=== PATIENT | female | born 2000 | race Caucasian/White ===

== ENCOUNTER 2023-02-08 10:24 | Emergency (ER) | payer OTHER, SELFPAY ==
--- NOTE | ~2023-02-08 | XR_ITS ---
EXAMINATION: XR ankle RT min 3V INDICATION: Right ankle pain TECHNIQUE: Four views of the right ankle are obtained. COMPARISON: None available FINDINGS: Bone alignment is normal. There is no fracture. There is lateral soft tissue swelling of an kle. IMPRESSION: 1. Ankle soft tissue swelling without acute osseous abnormality. Reviewed, dictated and finalized at location A.
[2023-02-08 10:30] VITALS: BP 142/81; PULSE 118; RESP 16; TEMP 36.7; O2SAT 99
--- NOTE | 2023-02-08 10:35 | ED.LOWEXIN ---
HPI - Extremity Injury (Lower) General Chief Complaint: Extremity Injury, Lower Stated Complaint: Fall Injury/Right Ankle History of Present Illness HPI Narrative: patient presetns with right ankle pain. patient states she rolled her ankle walking home from [place] last night. Hurts to walk on ankle. no deformity noted . superficial abrasions to left knee. Related Data Home Medications Medication Instructions Recorded Confirmed levonorgestrel 20.4 mcg/24 hrs (8 1 device intrauterine ONCE 02/08/23 02/08/23 yrs) 52 mg intrauterine device (Liletta) Allergies Allergy/AdvReac Type Severity Reaction Status Date / Time azithromycin [From Zithromax] Allergy Intermediate Wheezing Verified 02/08/23 10:47 erythromycin base Allergy Intermediate Hives Verified 02/08/23 10:46 Review of Systems Review of Systems: CONSTITUTIONAL: Denies fever, chills, or sweats. EYES: Denies visual changes, redness, or discharge. ENT: Denies rhinorrhea, congestion, sore throat, or otalgia. CARDIOVASCULAR: Denies chest pain, palpitations, or edema. RESPIRATORY: Denies cough or dyspnea. GASTROINTESTINAL: Denies abdominal pain, nausea, vomiting, or diarrhea. GENITOURINARY: Denies dysuria or hematuria. SKIN: Denies rash or itching. MUSCULOSKELETAL: Denies back pain, joint pain, or myalgia. NEUROLOGIC: Denies headache, numbness, or weakness. PSYCHIATRIC: Denies anxiety or depression. PMFSH Comments At time of signature, agree with nursing past medical, surgical, social and family history. There is no relevant family history pertinent to the presenting complaint Exam Narrative: GENERAL: Well-appearing, well-nourished, and in no acute distress. HEAD: Normocephalic, atraumatic. EYES: PERRLA and EOMI. ENT: Nares clear, no rhinorrhea or epistaxis. Mucous membranes moist. NECK: Supple. CHEST: Clear to auscultation. No respiratory distress. HEART: Regular rate and rhythm. No murmur heard. Normal peripheral pulses. ABDOMEN: Soft, nontender, nondistended, normal active bowel sounds. EXTREMITIES: Normal range of motion. No edema. SKIN INTACT. NORMAL DP PULSE, NORMAL CAP REFILL. to right ankle pain to lateral side of ankle. NORMAL SENSATION.NO DEFORMITY. NORMAL ROM, HAS FULL EXTENSION AND FLEXION. COMPARTMENTS SOFT. NEGATIVE ANTERIOR, POSTERIOR DRAWER SIGNS ON TEST. NO CREPITUS. DP PULSE, NORMAL CAPILLARY REFILL MCMURRAYS, PAIN TO RIGHT MEDIAL AND DISTAL KNEE WITH KNEE FLEXION, INTERNAL AND EXTERNAL FOOT ROTATION.NO ERYTHEMA OR INCREASED WARMTH TO CALF. . left knee superficial abrasions to knee SKIN: Warm, dry, no rash. NEURO: No focal deficits. Alert and oriented x3. Briana Coma Scale Eye Opening: Spontaneous 4 Briana Coma Scale Motor: Obeys Commands 6 [place] Coma Scale Verbal: Oriented 5 Briana Coma Scale Total 15 Course Course Level of Care: Express Care Visit Discharge Plan Discharge Clinical Impression: Ankle sprain and strain Patient Disposition: Home, Self-Care Condition: Stable Instructions: Ankle Strain (ED) Additional Instructions: Ice to the area 20-30 minutes 4-6 times a day Elevate above heart Elastic wrap as directed for comfort for the next 5-7 days Tylenol for lesser pain Ibuprofen regularly for the next 2-3 days for the inflammation Follow-up with PCP if further problems or concerns -If you have any worsening of symptoms or any other concerns please go to the ED immediately. elling and redness to the edge of the eyelid. believes it is a sty. Prescriptions: No Action Liletta 20.4 mcg/24 hrs (8 yrs) 52 mg Intrauterine Device 1 device INTRAUTERINE ONCE Rx Instructions: as a single dose Follow-up/Referrals: PHYSICIAN,ENROLLED AGENT [Primary Care Provider] -
== END 2023-02-08 11:05 | disposition home or self-care (01) ==
PROVIDERS: Emergency Provider Nurse Practitioner Family
DX: S93.401A Sprain of unspecified ligament of right ankle, initial encounter (principal); S96.911A Strain of unspecified muscle and tendon at ankle and foot level, right foot, initial encounter; X50.9XXA Other and unspecified overexertion or strenuous movements or postures, initial encounter; G47.30 Sleep apnea, unspecified
CPT/HCPCS: 73610; 99213; G0463

== ENCOUNTER 2024-09-14 15:08 | Outpatient (CLI) | payer OTHER, SELFPAY ==
--- NOTE | ~2024-09-14 | US_ITS ---
EXAM: PELVIC ULTRASOUND HISTORY: D21.9 - Benign neoplasm of connective and other soft tiss... COMPARISON: None FINDINGS: UTERUS: 7.1 x 3.2 x 4.2 cm. The endometrial complex measures 2.34mm. Intrauterine device is present, in good position. Free fluid is detected within the cervix. RIGHT OVARY: The right ovary is unremarkable in echogenicity and size measuring 3.2 x 2.8 x 2.5 cm. Dopplerable flow is identified. LEFT OVARY: The left ovary is unremarkable in echogenicity and size measuring 3.3 x 1.7 x 3.0 cm Dopplerable flow is identified. Free fluid is identified within the posterior cul-de-sac. IMPRESSION: No fibroids are identified. Multiple simple cysts detected bilaterally, for which no further follow-up is needed (based on size c riteria). Free fluid within the posterior cul-de-sac. IUD in good position. Reviewed, dictated and finalized at location A. IMPRESSION: No fibroids are identified. Multiple simple cysts detected bilaterally, for which no further follow-up is n eeded (based on size criteria). Free fluid within the posterior cul-de-sac. IUD in good position.
--- OUTSIDE RECORDS SUMMARY | 2024-09-14 16:36 | XMS_ITS | Referral Summary ---
Author Organization [facility] Address [address] [place] [address] Care Team Providers Care Astronautical Engineer Name Role Phone FredrickMerna DIANE Primary Care Provider [phone] Encounters Date Type Department Care Team Description 08/10/2024 Orders Only [facility] Hospitalists [address] [place] [id number] Gregoria Noyola MD Infected cyst of skin (Primary Dx) 08/03/2024 8:00 AM DISTRICT SUPERVISOR Office Visit [facility] at [address] [place] [address] Gregoria Noyola MD Infected cyst of skin (Primary Dx); Chronic migraine without aura without status migrainosus, not intractable from Last 3 Months Allergies Active Allergy Reactions Criticality Noted Date Comments Apple Swelling Medium 02/24/2018 Azithromycin Diarrhea,Hives,Rash, Ur ticaria,Nausea & Vomiting,Wheezing Medium 04/30/2021 Stomach pain Latex Hives Medium 04/13/2020 [place] Hives Medium 02/05/2024 Mold Other Eye irritation,Itching Low 04/12/2013 Dogs and cats Peanut Anaphylaxis High 04/13/2020 Pineapple Anaphylaxis High 02/05/2024 Phentermine-Topiramate Fatigue Low 03/16/2024 Shellfish Derived Anaphylaxis High 02/05/2024 Tetanus Vaccines And Toxoid Other (See comments),Shortness of breath High 02/05/2024 Tree Nut Anaphylaxis High 04/13/2020 Medications diphenhydrAMINE (diphenhydrAMIN E) 25 mg capsule Take 1 tablet/capsule (25 mg total) by mouth every 6 (six) hours as needed for itching 20 capsule 03/12/20 20 Active SUMAtriptan (IMITREX) 100 mg tabletIndicatio ns:Migraine Take 1 tablet (100 mg total) by mouth once as needed for migraine (headache) May repeat one time after 2 hours if needed. 9 tablet 1 02/05/20 24 025 Active spironolactone (ALDACTONE) 50 mg tabletIndicatio ns:Acne vulgaris Take 1 tablet (50 mg total) by mouth daily 90 tablet 1 02/09/20 24 025 Active EPINEPHrine (EpiPen) 0.3 mg/0.3 mL auto-injection syringeIndicati ons:Anaphylaxis Inject 0.3 mL (0.3 mg total) into the muscle as instructed as needed for anaphylaxis 2 each 3 02/09/20 24 Active famotidine (PEPCID) 20 mg tabletIndicatio ns:Gastroesopha geal reflux disease without esophagitis Take 1 tablet (20 mg total) by mouth 2 (two) times a day for 10 days 20 tablet 04/27/20 24 Active levonorgestreL (MIRENA) IUD 1 each by intrauterine route once Active tirzepatide, weight loss, (Zepbound) 10 mg/0.5 mL pen injector Inject 0.5 mL (10 mg total) under the skin every 7 days 2 mL 08/26/19 25 Active tirzepatide, weight loss, (Zepbound) 7.5 mg/0.5 mL pen injector Inject 0.5 mL (7.5 mg total) under the skin every 7 days 2 mL 07/21/19 25 025 Discontinu ed(Alterna te therapy) cephalexin (KEFLEX) 500 mg capsuleIndicati ons:Skin/Soft Tissue Infection Take 1 capsule (500 mg total) by mouth 4 (four) times a day for 5 days 20 capsule 08/11/19 25 025 Active Problems Problem Noted Date Diagnosed Date Infected cyst of skin 08/03/2024 Assessment & Plan (08/10/2024 6:26 AM DISTRICT SUPERVISOR): 2 cm nodule characteristic of cyst on right upper abdomen, inflamed, not actively bleeding or draining. History of breast fibroadenoma, however this does not seem to be related as cyst is not on the breast. No systemic sick symptoms. - cephalexin for active skin infection - advised patient to use warm compresses, avoid squeezing - consider excision if persistent lesion after acute inflammation resolved Morbid obesity with BMI of 40.0-44.9, adult 01/08 Assessment & Plan (02/05/2024 4:23 PM CDT): Struggling to lose weight Has seen sales training manager; working on calorie deficit Exercising daily; making healthy dietary choices Obstructive sleep apnea syndrome 02/05/2024 Assessment & Plan (02/05/2024 4:22 PM CDT): Compliant with CPAP Chronic migraine without aur a without status migrainosus, not intractable 02/03/2022 Assessment & Plan (08/10/2024 6:30 AM DISTRICT SUPERVISOR): Chronic problem, weekly symptoms, slightly improved with Advil and cool masks. Not addressed fully due to acuity of visit. - trial of Excedrin migraine, patient instructed to take it at first sign of headache - follow-up for dedicated visit if symptoms persist Vitamin D deficiency 05/21/2021 Acne vulgaris 05/20/2021 Assessment & Plan (02/05/2024 4:24 PM CDT): Chronic, stable Continue Spironolactone 50 mg daily Abnormal findings on diagnostic imaging of wally dasilva 02/24/2018 Immunizations Immunization Administration Dates Next Due DTP / HiB 01/28/2000, 9,1998,10/10 DTaP 11/20/2003 DTaP / HiB 01/28/2000 HPV, Unspecified 09/23/2011, 2,06/04/2011,06/04,02/17/2011,02/17/2011 Hep A, Pediatric 09/23/2011,02/17/2011 Hep B, Adolescent or Pediatric 03/13/1999,1998,1998 IPV 11/20/2003, 0,1998,10/10 Influenza, Quadrivalent, Spl it, Intramuscular 03/09/2021,03/08/2020 Influenza, Quadrivalent, Spl it, Preservative Free, Intramuscular 04/13/2019 Influenza, Unspecified 02/18/2024(Deferr ed: Patient Refused),02/06/2023(Deferred: Patient Refused),03/23/2020 MMR 11/20/2003,10/22/1999 Meningococcal ACWY, Unspecified 01/17/2016,11/16 Pneumococcal Conjugate 7-Valent 10/27/2000,01/27 Pneumococcal Conjugate, Unspecified 10/27/2000,0 01/28/2000 Polio, Unspecified 01/17/2016,11/16/2009 Rotavirus, Unspecified 1998,1998,1998,10/10 Tdap 11/16/2009 Varicella 11/16/2009,07/24/1999 Social History Tobacco Use Types Packs/Day Years Used Date Smoking Tobacco: Never Cigarettes Smokeless Tobacco: Never Tobacco Cessation:Counseling Given: Not Answered Alcohol Use Standard Drinks/Week Comments Yes 0 (1 standard drink = 0.6 oz pur e alcohol) [facility] Good Travel Softwareities Answer Date Recorded In the past 12 months has e [employer], gas, oil, or water [employer] threatened to shut off services in your home? No 02/05/2024 Humiliation, Afraid, Rape, and Kick questionnair e Answer Date Recorded Within the last year, have y ou been afraid of your partner or ex-partner? No 02/05/2024 Within the last year, have y ou been humiliated or emotionally abused in other ways by your partner or ex-partner? No Within the last year, have y ou been kicked, hit, slapped, or otherwise physically hurt by your partner or ex-partner? No 02/05/2024 Within the last year, have y ou been raped or forced to have any kind of sexual activity by your partner or ex-partner? No 02/05/2024 Social Connection and Isolat ion Panel [NHANES] Answer Date Recorded In a typical week, how many times do you talk on the phone with family, friends, or neighbors? More than three times a week 02/05/2024 How often do you get togethe r with friends or relatives? More than three times a week 02/05/2024 How often do you attend chur ch or yarsani services? 1 to 4 times per year 02/05/2024 Do you belong to any clubs o r organizations such as judaism groups, unions, fraternal or athletic groups, or school groups? No 02/05/2024 How often do you attend meet ings of the clubs or organizations you belong to? Never 02/05/2024 Are you , , di vorced, , never , or living with a partner? 02/05/2024 AUDIT-C Answer Date Recorded Q1: How often do you have a drink containing alc ohol? 2-4 times a month 08/03/2024 Q2: How many drinks containi ng alcohol do you have on a typical day when you are drinking? 1 or 2 08/03/2024 Q3: How often do you have si x or more drinks on one occasion? Never 08/03/2024 Overall Financial Resource Strain (CARDIA) Answe r Date Recorded How hard is it for you to pa y for the very basics like food, housing, medical care, and heating? Not hard at all 02/05/2024 PHQ-2 Answer Date Recorded PHQ-2 Total Score (If total score is 3 or more points, staff should administer the PHQ-9) 0 08/03/2024 [facility] - Occupational Stress Questionnaire Answer Date Recorded Do you feel stress - tense, restless, nervous, or anxious, or unable to sleep at night because your mind is troubled all the time - these days? Only a little 02/05/2024 Exercise Vital Sign Answer Date Recorde d On average, how many days pe r week do you engage in moderate to strenuous exercise (like a brisk walk)? 7 days 02/05/2024 On average, how many minutes do you engage in exercise at this level? 50 min 02/05/2024 Hunger Vital Sign Answer Date Recorded Within the past 12 months, y ou worried that your food would run out before you got the money to buy more. Never true 02/05/20 24 Within the past 12 months, t he food you bought just didn't last and you didn't have money to get more. Never true 02/05/2024 PRAPARE - Transportation Answer Date Re corded In the past 12 months, has l ack of transportation kept you from medical appointments or from getting medications? No 01/08 In the past 12 months, has l ack of transportation kept you from meetings, work, or from getting things needed for daily living? No 02/05/2024 PHQ-9 Answer Date Recorded PHQ-9 Total Score 0 02/05/2024 Housing Stability Vital Sign Answer Landen e Recorded In the last 12 months, was t here a time when you were not able to pay the mortgage or rent on time? No 02/05/2024 In the past 12 months, how m any times have you moved where you were living? 0 02/05/2024 At any time in the past 12 m [facility], were you homeless or living in a chcf (including now)? No 02/05/2024 Comments No Sex and Gender Information Value Date Recorded Sex Assigned at Not on file Legal Sex Female 7:32 PM DISTRICT SUPERVISOR Gender Identity Not on file Sexual Orientation Not on file Last Filed Vital Signs Vital Sign Reading Time Taken Comments Blood Pressure 91/68 08/03/2024 8:06 AM DISTRICT SUPERVISOR Pulse 90 08/03/2024 8:06 AM DISTRICT SUPERVISOR Temperature 36.6 C (97.9 F) 06/10/2024 2:19 PM DISTRICT SUPERVISOR Respiratory Rate 16 08/03/2024 8:06 AM DISTRICT SUPERVISOR Oxygen Saturation 98% 08/03/2024 8:06 AM DISTRICT SUPERVISOR Inhaled Oxygen Concentration - - Weight 88 kg (194 lb) 08/03/2024 8:06 AM DISTRICT SUPERVISOR Height 157.5 cm (5' 2.01 ) 08/03/2024 8:06 AM CS T Body Mass Index 35.47 08/03/2024 8:06 AM DISTRICT SUPERVISOR Plan of Treatment Not on file Insurance [facility] ACCESS CHOICE [facility] CHO[facility] H[facility]/PPO Address: [address] [address] [place] [address] Care Teams Astronautical Engineer Relationship Specialty Start Date End Date Merna Alcala NP [address] [place] [address] PCP - General Family Medicine 02/05/24
--- OUTSIDE RECORDS SUMMARY | 2024-09-14 16:36 | XMS_ITS | Clinical Summary ---
Author Organization [facility] Address [address] [place] [address] Care Team Providers Care International Organizer Name Role Phone Merna Alcala DIANE Primary Care Provider [phone] Allergies Active Allergy Reactions Criticality Noted Date Comments Apple Swelling Medium 02/24/2018 Azithromycin Diarrhea,Hives,Rash, Ur ticaria,Nausea & Vomiting,Wheezing Medium 04/30/2021 Stomach pain Latex Hives Medium 04/13/2020 [place]ush Hives Medium 02/05/2024 Mold Other Eye irritation,Itching [...] 08/03/2024 Assessment & Plan (08/10/2024 6:26 AM WINDOWS SYSTEMS ADMIN): 2 cm nodule characteristic of cyst on [...] CDT): Struggling to lose weight Has seen passenger coach driver; working on calorie deficit Exercising daily; making healthy dietary choices Obstructive sleep apnea syndrome 02/05/2024 Assessment & Plan (02/05/2024 4:22 PM CDT): Compliant with CPAP Chronic migraine without aur a without status migrainosus, not intractable 02/03/2022 Assessment & Plan (08/10/2024 6:30 AM WINDOWS SYSTEMS ADMIN): Chronic problem, weekly symptoms, slightly improved with [...] daily Abnormal findings on diagnostic imaging of breas t 02/24/2018 Encounters Date Type Department Care Team Description 08/10/2024 Orders Only [facility] Hospitalists [address] [place] [address] Gregoria Noyola MD Infected cyst of skin (Primary Dx) 08/03/2024 8:00 AM WINDOWS SYSTEMS ADMIN Office Visit [facility] Res[facility] at [place] [address] [facility] [address] [place] [address] Gregoria Noyola MD Infected cyst of skin (Primary Dx); Chronic migraine without aura without status migrainosus, not intractable from Last 3 Months Immunizations Immunization Administration Dates Next Due DTP [...] Rotavirus, Unspecified 1998,1998,1998,10/10 Tdap 11/16/2009 Varicella 11/16/2009,07/24/1999 Surgical History Surgery Date Site/Laterality Comments TONSILLECTOMY AND ADENOIDECTOMY Medical History Medical History Date Comments Headache Weight gain Snoring Family History Medical History Relation Name Comments Cancer Father Yevgeniy Hypertension Father Yevgeniy Lymphoma Father Yevgeniy Prostate cancer Father Yevgeniy Diabetes Maternal Grandfather Michael Breast cancer Maternal Grandmother María COPD Maternal Grandmother María Cancer Maternal Grandmother María Diabetes Maternal Grandmother María Asthma Mother Jeison Diabetes Mother Jeison Hypertension Mother Jeison Arthritis Paternal Grandmother María Cancer Paternal Grandmother María Diabetes Paternal Grandmother María Relation Name Status Comments Father Yevgeniy Maternal Grandfather Michael Maternal Grandmother María Mother Jeison Paternal Grandmother María Social History Tobacco Use Types Packs/Day Years Used Date Smoking Tobacco: Never Cigarettes Smokeless Tobacco: Never Tobacco Cessation:Counseling Given: Not Answered Alcohol Use Standard Drinks/Week Comments Yes 0 (1 standard drink = 0.6 oz pur e alcohol) [facility] Utilities Answer Date Recorded In the past 12 months has th e electric, gas, oil, or water [employer] threatened to shut off services in your [...] week 02/05/2024 How often do you attend [facility] or sabianism services? 1 to 4 times per year 02/05/2024 Do you belong to any clubs o r organizations such as sikhism groups, unions, fraternal or athletic groups, or [...] staff should administer the PHQ-9) 0 08/03/2024 [facility] Occupat ional Health - Occupational Stress Questionnaire Answer Date [...] any time in the past 12 m [facility], were you homeless or living in a penitentiary (including now)? No 02/05/2024 Comments No Sex and Gender Information Value Date Recorded Sex Assigned at Not on file Legal Sex Female 7:32 PM WINDOWS SYSTEMS ADMIN Gender Identity Not on file Sexual Orientation Not on file Obstetrics History Last Filed Vital Signs Vital Sign Reading Time Taken Comments Blood Pressure 91/68 08/03/2024 8:06 AM WINDOWS SYSTEMS ADMIN Pulse 90 08/03/2024 8:06 AM WINDOWS SYSTEMS ADMIN Temperature 36.6 C (97.9 F) 06/10/2024 2:19 PM WINDOWS SYSTEMS ADMIN Respiratory Rate 16 08/03/2024 8:06 AM WINDOWS SYSTEMS ADMIN Oxygen Saturation 98% 08/03/2024 8:06 AM WINDOWS SYSTEMS ADMIN Inhaled Oxygen Concentration - - Weight 88 kg (194 lb) 08/03/2024 8:06 AM WINDOWS SYSTEMS ADMIN Height 157.5 cm (5' 2.01 ) 08/03/2024 8:06 AM CS T Body Mass Index 35.47 08/03/2024 8:06 AM WINDOWS SYSTEMS ADMIN Plan of Treatment Health Maintenance Due Date Last Done Comments Cervical Cancer Screening 1998 Hepatitis C Screening 1998 Regular Well Visit/Exam 18-64 2016 Influenza Vaccine (Season Ended) 2025 04/08/2023, 03/09/2021, 03/23/2020, Additional history exists Depression Screening 08/03/2025 08/03/2024, 02/05/20 24 Hepatitis B Screening Completed 03/13/1999 , 1998, 1998 Pneumococcal vaccine <65 Completed 001, 10/27/2000, 01/28/2000, Additional history exists DTaP/Tdap/Td Vaccine Discontinued 11/16/2009, 11/20/2003, 01/28/2000, Additional history exists Varicella Vaccines Completed 11/16/2009, 07/24/1999 HPV Vaccines Completed 09/23/2011, 09/06, 06/04/2011, Additional history exists Covid-19 Vaccine Discontinued 02/25/2021, 02/01/2021 Insurance [facility] ACCESS CHOICE [facility] CHO[facility] PLUS Care Teams International Organizer Relationship Specialty Start Date End Date [place] [address] PCP - General Family Medicine 02/05/24
== END 2024-09-14 15:09 | disposition home or self-care (01) ==
PROVIDERS: PCP Nurse Practitioner; Visit Provider Obstetrics & Gynecology
DX: D21.9 Benign neoplasm of connective and other soft tissue, unspecified (principal); Z97.5 Presence of (intrauterine) contraceptive device; N83.201 Unspecified ovarian cyst, right side; N83.202 Unspecified ovarian cyst, left side
CPT/HCPCS: 76830; 76856

== ENCOUNTER 2024-11-28 00:40 | Day surgery (SDC) | payer OTHER, SELFPAY ==
[2024-11-22 15:04] VITALS: BMI 32.2
--- NOTE | 2024-11-22 15:20 | PC.NURSE ---
Report to the Outpatient Waiting Room, entrance under the green pavilion located off [facility], at time __0830 on date _11/28/24 . Planned Procedure Time: _1030 .? Time changes happen often and if your time is changed the preop area will call you the afternoon before. - You and your visitor will be asked to self-screen and do not enter if you have any COVID symptoms. Please call surgeon if you need to reschedule. - A mask is optional within the hospital at this time. Patients may have clear liquids (water, carbonated beverages, clear teas, apple juice) until 3 hours prior to surgery with a maximum of 20 ounces. - No food from midnight until time of surgery and no smoking, or chewing tobacco (or any form of nicotine). No chewing gum, candy or mints. Take only the following medications with a SIP of water on the morning of surgery: ___NONE DO NOT STOP ANY OF YOUR OTHER PRESCRIPTION MEDICATIONS PRIOR TO SURGERY EXCEPT THE FOLLOWING Hold all vitamins and supplements for 3 days per anesthesiologist. Medications to discontinue per physician NONE Date to take last dose____NONE Please no make-up, nail greenlandic, hairspray, perfume, deodorant, or body powder the day of surgery.? No jewelry (including any body piercings) or valuables the day of surgery, leave them at home.? Please take a shower or bath the night before, or the morning of, surgery with an antibacterial soap.? Wear comfortable, loose fitting clothing.? Children are encouraged to wear pajamas. - Jewelry must be removed prior to entering the operating room.? Rings and piercings that are not removed may be cut off. - The hospital will not accept responsibility for valuables.? - Please leave all valuables, including medications, at home the day of surgery. If you are going home after surgery, a licensed belly dump driver must drive you home.? - NO public transportation without another adult if you receive anesthesia. - We recommend that an adult stay with you for 24 hours following discharge. - We also recommend that you do not drive, make important decision, drink alcoholic beverages, or take any drugs that were not prescribed by your health care provider for at least 24 hours after your discharge time. Follow any additional instructions given to you from your surgeon. Telephone instructions given to __MARJAN and asked if any additional questions and then verbalized understanding. Patient advised to call surgeon office or pre surgery nurse liaison [phone] if any additional questions.
--- NOTE | 2024-11-28 07:07 | WPDHPUPDATE1 ---
History and Physical Update Update Date/Time: 11/28/24 07:07 History and Physical has been reviewed, including an updated exam of the patient. There are NO changes in the patient's condition. Risks, benefits, and alternatives have been discussed and questions answered. Patient agrees to proceed with IUD removal (hysteroscopy not needed as strings are visualized) with LEEP, top hat, and ECC.
[2024-11-28 07:50] VITALS: BP 107/67; PULSE 74; RESP 18; TEMP 36.2; O2SAT 100; BMI 32.9
[2024-11-28] MEDS: ACETAMINOPHEN 500 MG TABLET 1000 MG PO (08:16)
[2024-11-28] MEDS: LACTATED RINGERS 1,000 ML 30 ML IV CONT (08:25)
[2024-11-28 08:42] LABS: BEDSIDEPREGUCG Negative (Negative)
--- NOTE | 2024-11-28 08:46 | WPDANESEPPF ---
Anes - Initial Pre Proc Eval Procedure: Operation Date: 11/28/24 09:30 Proposed Procedures p Hysteroscopy with Intrauterine Device Removal - Parris Willett MD s Loop Electrical Excision Procedure - Parris Willett MD Date/Time: 11/28/24 08:46 Surgeon: Parris Willett MD Pre Op Diagnosis: Cervical Dysplasia Patient Data Age: 24 Gender: F Height: 1.57 m Weight: 81.7 kg Last Vital Signs Temp 36.2 C L 11/28/24 07:50 Pulse 74 11/28/24 07:50 Resp 18 11/28/24 07:50 BP 107/67 11/28/24 07:50 Pulse Ox 100 11/28/24 07:50 O2 Del Method Room Air 11/28/24 07:50 Allergies Allergy/AdvReac Type Severity Reaction Status Date / Time azithromycin (From Zithromax) Allergy Intermediate Wheezing Verified 11/22/24 15:19 erythromycin base Allergy Intermediate Hives Verified 11/22/24 15:19 Home Medications ?Medication ?Instructions ?Recorded ?Confirmed ?Type levonorgestrel 20.4 mcg/24 hr (up 1 device intrauterine ONCE 02/08/23 11/22/24 History to 8 yrs) 52 mg intrauterine device (Liletta) spironolactone 50 mg tablet 50 mg PO DAILY 08/31/24 11/28/24 History clobetasol 0.05 % topical ointment 1 applic topical BID 2 weeks #60 09/01/24 11/22/24 Rx grams phentermine 3.75 mg-topiramate ER 1 cap PO Q24H 11/22/24 11/28/24 History 23 mg capsule,ext.release 24hr mphas (Qsymia) Laboratory Tests 11/28/24 08:39 POC Urine HCG, Qual Negative (Negative) Patient hx anesthesia problems: post op nausea/vomiting Family hx anesthesia problems: none Results Review: All pre-operative results and documents have been reviewed as part of the pre-operative evaluation. [facility] Past Medical History Medical History Allergies Surgical History Surgical History Presence of Liletta IUD november 2020 History of colposcopy PHIL 2 Hx of tonsillectomy Sept 2014 S/P excision of fibroadenoma of breast Jun 2016 Family History Family History Father Malignant neoplasm of prostate Grandparent Breast cancer maternal grandmother 3x Melanoma pat grandmother Depression mat grandmother and grandfather Mother Depression Social History Social History Smoking status: Never smoker Alcohol intake: current Substance use: never Substance use type: does not use Do You Feel Safe in your Home?: Yes Lack of Transportation: No Lack of Food: Never True Current Housing: I Have Housing Concerned About Future Housing: Decline to Answer Difficulty Paying Gas/Electric Bills: Decline to Answer Difficulty Paying for Meds: Decline to Answer Currently Unemployed: Decline to Answer Education: Associate Degree Difficulty w/ Childcare or Family Care: Decline to Answer Living arrangements: with family Additional living arrangements comments: and stepdaughter Occupation/Education: 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 Gender identity (if verbalized by the patient): Female Sexual Orientation (if Verbalized by the Patient): Straight or Heterosexual Spiritual care concerns: No Anes - Eval Final PreProcedure Day of Procedure 11/28/24 08:46 Patient weight: obese Heart: regular rate and rhythm Lungs: clear to auscultation Airway: Mallampati scale class II Neurological: alert and oriented Last oral intake: >/= 8 hours ASA classification: II Emergent: no Anesthetic plan: proceed Anesthesia type and monitoring: general GIVS and standard monitoring Results Review: All pre-operative results and documents have been reviewed as part of the pre-operative evaluation. Informed Consent: The patient's anesthetic plan and its attendant risks and benefits were discussed with the patient/family/POA. Questions were solicited and answers provided to the satisfaction of the patient/family/POA.
[2024-11-28] MEDS: BUPIVACAINE/EPINEPHRINE 0.5% 50 ML VIAL 20 ML INFILTRATE (09:18)
--- NOTE | 2024-11-28 09:20 | S_PTH ---
PATIENT: Bernadette Rodriguez LOC: [facility] U#:[id number] AGE/SX: 24/F ROOM: RE11/28/[address]: Parris Willett MD : 2000 BED: DIS: 11/28/2024 SPEC #: [id number] RECD: 11/28/24 10:43 STATUS: INGRID REVero #: [id number] ALFREDO: 11/28/24 09:[address]: Parris Willett DEPT: [facility] Surgical RECD BY: Naheed Jaeger ENTERED: 11/28/24 10:43 SP TYPE: Surgical OTHR DR: Merna Alcala Tissues: A - Leep/Cone B - Leep/Cone C - Endocervical Curettings Procedures: Hematoxylin and Eosin Stain Gross and Microscopic Level 4 Gross and Microscopic Level 5
[2024-11-28 09:23] LABS: BEDSIDEPREGUCG Negative (Negative)
[2024-11-28] MEDS: FERRIC SUBSULFATE 8 ML SOLUTION WITH APPLICATOR TOPICAL (09:25)
[2024-11-28 09:35] VITALS: BP 95/55; PULSE 82; RESP 14; O2SAT 95
[2024-11-28] MEDS: ONDANSETRON INJ 4 MG/2 ML VIAL IV PUSH (09:41)
--- NOTE | 2024-11-28 09:41 | P.OP_ITS ---
Procedure Note - Detailed Date of Procedure 11/28/24 Pre-op Diagnosis Cervical Dysplasia Post-op Diagnosis Same Procedure Performed IUD removal, LEEP, top hat, ECC Surgeon Parris Willett MD Anesthesia MAC and Local (8cc of 0.5% marcaine w/ epi) Indications PHIL on colpo biopsy at 6 and 9o'clock, PHIL 1 at 12o'clock. Findings IUD removed without issues/intact and discarded. Only area of Lugol's uptake was from 9-12o'clock, all other areas of the cervix did not uptake the Lugol's. Good hemostasis at end of case. Description of Procedure Bernadette was taken to the operating room where she was placed under MAC sedation without complications. She was then prepped and draped in the normal fashion in the dorsal lithotomy position with her legs in low Jeffrey stirrups. A time-out was performed and no preoperative antibiotics were indicated. A coated speculum attached to suction was then placed within the vagina, where the cervix was easily identified. The IUD strings were easily visualized and grasped with a ring forceps. The IUD was removed in whole without issue and discarded. Lugol?s solution was then applied to the cervix. The only area of uptake was noted from 9-12o'clock, all other areas of the cervix had no uptake. The cervix was then injected with 0.5% Marcaine with epinephrine (8cc were used). The LEEP was then obtained in a single swipe from the patient?s left to right. The LEEP was re moved and a silk stitch was placed at 12:00 p.m. to orient the tissue for pathology. A top-hat was then obtained in the same manner. A silk stitch was then placed at 12:00 p.m. An ECC was then collected. The LEEP bed was then cauterized using the roller ball. Monsel?s solution was then placed in the LEEP bed. Good hemostasis was noted. Sponge, lap, instrument, and needle counts were correct at the end of the procedure. The patient was awoken from anesthesia and taken to recovery in a stable condition with plans of same-day discharge home. Estimated Blood Loss 1 IV Fluids 400 Pathology Yes (Leep (stitch at 12o'clock), Top Hat (stitch at 12o'clock), ECC) Complications No immediate complications Condition Stable Disposition Same day [facility] Billing Surgery - Charge Forward: Surgery Billing
[2024-11-28] MEDS: IODINE/POTASSIUM IODIDE 8 ML SOLUTION TOPICAL (09:51)
[2024-11-28] MEDS: SCOPOLAMINE 1 MG PATCH 1 PATCH TRANSDERM (10:01)
[2024-11-28] MEDS: diphenhydrAMINE HCl INJ 50 MG/ML VIAL 25 MG IV PUSH (10:02)
[2024-11-28] MEDS: fentaNYL CITRATE INJ (*CRX) 100 MCG/2 ML VIAL 25 MCG IV PUSH (10:02)
[2024-11-28 10:05] VITALS: BP 100/67; PULSE 66; RESP 14; O2SAT 100
[2024-11-28 10:35] VITALS: BP 110/83; PULSE 49; RESP 14; O2SAT 100
[2024-11-28] MEDS: oxyCODONE HCL (*CRX) 5 MG TAB IR PO (10:50)
[2024-11-28 11:05] VITALS: BP 96/61; PULSE 60; RESP 14
== END 2024-11-28 11:23 | disposition home or self-care (01) ==
PROVIDERS: PCP Nurse Practitioner; Visit Provider Obstetrics & Gynecology
PROC: 0U5B8ZZ Destruction of Endometrium, Via Natural or Artificial Opening Endoscopic (ICD-10-PCS; CPT 58563; principal; 2024-11-28 09:30)
PROC: 0UBC7ZZ Excision of Cervix, Via Natural or Artificial Opening (ICD-10-PCS; CPT 57522; 2024-11-28 09:30)
DX: N87.1 Moderate cervical dysplasia (principal); Z30.432 Encounter for removal of intrauterine contraceptive device; E66.9 Obesity, unspecified; Z68.32 Body mass index [BMI] 32.0-32.9, adult
CPT/HCPCS: 58301; 57522; 88305; 88307; A9270; J1100; J1200; J2250; J2270; J2405; J2704; J3010; J7030; J7120